=== PATIENT | female | born 1975 | race Caucasian/White ===

== ENCOUNTER 2017-05-16 18:33 | Inpatient (IN) | payer OTHER ==
[~2017-05-16] VITALS: Ht 165.1 cm; Wt 99.8 kg
[~2017-05-16 18:33] MED LIST: ADV250/50 PO; AMITRIPTYLINE25 MG PO; ASPIRIN ADULT L81 M1 PO; BUPROPION XL300 MG PO; CHLORPROMAZINE PO; FENOFIBRATE134 M1 PO; FLUOXETINE HYDR40 MG PO; FOL1 PO; GLIMEPIRIDE2 MG PO; KLONOPIN2 M1 PO; METFORMIN ER500 MG PO; METOCLOPRAMIDE10 PO; METOPROLOL50 MG PO; MSC100 PO; OMEPRAZOLE D/R20 MG PO; ONDANSETRON ODT8 MG PO; PIMOZIDE PO; SIMVASTATIN80 MG PO; VENTOLIN H0.09 MG/Ac; ZES5 PO
[2017-05-16 21:10] LABS: RED CELL DISTRIBUTION WIDTH 14.5 % (11.5-14.5)
[2017-05-16 21:13] LABS: PLATELET COUNT 424 x10^3mcL (130-400)
[2017-05-16 21:23] LABS: CALCIUM 8.9 mg/dL (8.5-10.1); CARBON DIOXIDE 26.8 mmol/L (21-32); CREATININE SERUM 1.2 mg/dL (0.6-1.0); POTASSIUM SERUM 3.4 mmol/L (3.5-5.1)
[2017-05-16 21:27] LABS: BILIRUBIN TOTAL 0.3 mg/dL (0.20-1.00); TOTAL PROTEIN, SERUM 7.7 g/dL (6.4-8.2)
[2017-05-16 21:31] LABS: ALBUMIN 3.3 g/dL (3.4-5.0)
[2017-05-16 21:57] LABS: BAND NEUTROPHIL 0 % (0-10); BASOPHIL 0 % (0-2); MONOCYTE 4 % (0-7); SEGMENTED NEUTROPHILS 91 % (37-75); rbc morphology (normal/abnorm) ABNORMAL (NORMAL)
[2017-05-16] MEDS ORDERED: DUTOPROL PO (23:07)
[2017-05-16] MEDS ORDERED: MORPHINE SULFAT30 M2 PO (23:08)
[2017-05-16] MEDS ORDERED: ORAP2 MG PO (23:09)
[2017-05-16] MEDS ORDERED: SIMPONI50 MG/0.1 (23:09)
[2017-05-16] MEDS ORDERED: ATORVASTATIN CA20 M1 PO (23:10)
[2017-05-16] MEDS ORDERED: BUPROPION HYDR300 MG PO (23:10)
[2017-05-16] MEDS ORDERED: CYCLOBENZAPRINE10 MG PO (23:10)
[2017-05-16] MEDS ORDERED: FENOFIBRATE MI134 MG PO (23:11)
[2017-05-16] MEDS ORDERED: DIFLUCAN200 MG PO (23:11)
[2017-05-16] MEDS ORDERED: INVOKANA300 MG (23:12)
[2017-05-16] MEDS ORDERED: LEVOTHYROXIN0.025 M2 PO (23:12)
[2017-05-16] MEDS ORDERED: INVOKANA300 MG PO (23:12)
[2017-05-16] MEDS ORDERED: METFORMIN850 M1 PO (23:13)
[2017-05-16] MEDS ORDERED: ZESTRIL5 MG PO (23:13)
[2017-05-16] MEDS ORDERED: MELOXICAM15 M1 PO (23:13)
[2017-05-16 23:40] VITALS: BP 153/81
[2017-05-17 00:44] LABS: MAGNESIUM 1.8 mg/dL (1.8-2.4); PHOSPHOROUS 3.2 mg/dL (2.5-4.9)
[2017-05-17 00:46] LABS: T3 TOTAL 0.66 ng/mL
[2017-05-17 00:47] LABS: CHOLESTEROL/HDL RATIO 2.7
[2017-05-17 00:54] LABS: FREE T4 0.93 ng/dL (0.76-1.46); FREE THYROXINE INDEX 2.9 ug/dL (1.4-4.5); T4(THYROXINE) 7.4 ug/dL (4.7-13.3)
[2017-05-17 05:22] VITALS: BP 144/70
[2017-05-17 07:09] LABS: microscopic required? YES; urine erythrocyte TRACE (NEGATIVE)
[2017-05-17 07:19] LABS: AMPHETAMINE QUAL UR NONE DETECTED (NEG <=1000)
[2017-05-17 08:55] VITALS: BP 144/70
[2017-05-17 09:00] VITALS: BP 123/60
[2017-05-17 16:25] VITALS: BP 152/81
[2017-05-17 16:56] VITALS: BP 152/81
[2017-05-17 20:42] VITALS: BP 156/87
[2017-05-17 22:34] LABS: PLATELET COUNT 388 x10^3mcL (130-400); RED CELL DISTRIBUTION WIDTH 14.3 % (11.5-14.5)
[2017-05-17 22:59] LABS: BAND NEUTROPHIL 4 % (0-10); METAMYELOCTE 7 % (0-2); MONOCYTE 3 % (0-7); SEGMENTED NEUTROPHILS 78 % (37-75)
[2017-05-17 23:02] LABS: rbc morphology (normal/abnorm) NORMAL (NORMAL)
[2017-05-17 23:49] VITALS: Ht 165.1 cm; Wt 99.8 kg
[2017-05-18 05:18] VITALS: BP 149/93
[2017-05-18 06:12] LABS: PLATELET COUNT 366 x10^3mcL (130-400)
[2017-05-18 06:39] LABS: CARBON DIOXIDE 24.3 mmol/L (21-32); CHLORIDE SERUM 100 mmol/L (98-107); GFR1 > 60 mL/min; GLUCOSE SERUM 233 mg/dL (74-106); MAGNESIUM 1.8 mg/dL (1.8-2.4); PHOSPHOROUS 1.6 mg/dL (2.5-4.9); SODIUM SERUM 134 mmol/L (136-145)
[2017-05-18 06:58] LABS: POTASSIUM SERUM 2.9 mmol/L (3.5-5.1)
[2017-05-18 08:50] VITALS: BP 133/61
[2017-05-18 09:57] LABS: BAND NEUTROPHIL 5 % (0-10); BASOPHIL 0 % (0-2); METAMYELOCTE 2 % (0-2); MONOCYTE 8 % (0-7); SEGMENTED NEUTROPHILS 77 % (37-75)
[2017-05-18 10:00] LABS: rbc morphology (normal/abnorm) ABNORMAL (NORMAL)
[2017-05-18 13:40] VITALS: BP 141/77
[2017-05-18 17:50] VITALS: BP 144/84
[2017-05-18 19:11] LABS: BASOPHIL % 0.1 % (0-2); PLATELET COUNT 296 x10^3mcL (130-400); RED CELL DISTRIBUTION WIDTH 14.3 % (11.5-14.5)
[2017-05-18 22:30] VITALS: BP 141/79
[2017-05-18 23:37] LABS: TOTAL IRON BINDING CAPACITY 249 ug/dL (250-450)
[2017-05-18 23:38] LABS: IRON 16 ug/dL (50-170)
[2017-05-18 23:41] LABS: RED BLOOD CELLS 2.74 M/mm3 (4.10-5.10)
[2017-05-19 06:16] VITALS: BP 150/73
[2017-05-19 06:48] LABS: BASOPHIL % 0.3 % (0-2); PLATELET COUNT 298 x10^3mcL (130-400); RED CELL DISTRIBUTION WIDTH 13.9 % (11.5-14.5)
[2017-05-19 06:58] LABS: CALCIUM 7.9 mg/dL (8.5-10.1); CARBON DIOXIDE 24.8 mmol/L (21-32); CHLORIDE SERUM 105 mmol/L (98-107); CREATININE SERUM 0.8 mg/dL (0.6-1.0); GFR1 > 60 mL/min; GLUCOSE SERUM 144 mg/dL (74-106); PHOSPHOROUS 1.2 mg/dL (2.5-4.9); POTASSIUM SERUM 3.4 mmol/L (3.5-5.1); SODIUM SERUM 140 mmol/L (136-145)
[2017-05-19 07:50] VITALS: BP 144/82
[2017-05-19 12:56] VITALS: BP 137/80
[2017-05-19 13:21] LABS: BASOPHIL % 0.2 % (0-2); PLATELET COUNT 302 x10^3mcL (130-400); RED CELL DISTRIBUTION WIDTH 13.5 % (11.5-14.5)
[2017-05-19] MEDS ORDERED: PIMOZIDE2 MG PO (13:48)
[2017-05-19 17:29] VITALS: BP 143/79
[2017-05-19 20:40] VITALS: BP 141/74
[2017-05-20 05:47] VITALS: BP 133/61
[2017-05-20 07:11] LABS: BASOPHIL % 0.4 % (0-2); PLATELET COUNT 318 x10^3mcL (130-400); RED CELL DISTRIBUTION WIDTH 14.2 % (11.5-14.5)
[2017-05-20 07:15] LABS: CALCIUM 8.3 mg/dL (8.5-10.1); CARBON DIOXIDE 25.8 mmol/L (21-32); CHLORIDE SERUM 107 mmol/L (98-107); CREATININE SERUM 0.9 mg/dL (0.6-1.0); GFR1 > 60 mL/min; GLUCOSE SERUM 167 mg/dL (74-106); PHOSPHOROUS 1.7 mg/dL (2.5-4.9); POTASSIUM SERUM 3.4 mmol/L (3.5-5.1); SODIUM SERUM 140 mmol/L (136-145)
[2017-05-20 10:29] VITALS: BP 137/85
[2017-05-20 17:58] VITALS: BP 135/71
[2017-05-20 22:03] VITALS: BP 153/81
[2017-05-21 06:07] VITALS: BP 140/79
[2017-05-21 06:56] LABS: BASOPHIL % 0.1 % (0-2); PLATELET COUNT 365 x10^3mcL (130-400); RED CELL DISTRIBUTION WIDTH 14.4 % (11.5-14.5)
[2017-05-21 07:02] LABS: CALCIUM 8.4 mg/dL (8.5-10.1); CARBON DIOXIDE 23.3 mmol/L (21-32); CHLORIDE SERUM 104 mmol/L (98-107); GFR1 > 60 mL/min; GLUCOSE SERUM 175 mg/dL (74-106); MAGNESIUM 1.5 mg/dL (1.8-2.4); PHOSPHOROUS 2.3 mg/dL (2.5-4.9); POTASSIUM SERUM 3.4 mmol/L (3.5-5.1); SODIUM SERUM 138 mmol/L (136-145)
[2017-05-21] MEDS ORDERED: COL100 PO (12:04)
[2017-05-21] MEDS ORDERED: FER300 PO (12:40)
[2017-05-21] MEDS ORDERED: FENOFIBRATE MI134 MG PO (14:11)
[2017-05-21] MEDS ORDERED: PRI20 PO (14:13)
[2017-05-21] MEDS ORDERED: KLONOPIN2 MG PO (14:14)
[2017-05-21] MEDS ORDERED: FLUOXETINE HYDR20 M2 PO (14:19)
== END 2017-05-21 16:40 | disposition home or self-care (01) | DRG 417 ==
LOC: ED 18:33 → DU 22:45 → MU 22:45 → DU 23:40 → MU 05-19 19:04
PROVIDERS: Emergency Medicine; Student in an Organized Health Care Education/Training Program; Surgery; ADMIT Family Medicine
PROC: 0FT44ZZ Resection of Gallbladder, Percutaneous Endoscopic Approach (ICD-10-PCS; principal; 2017-05-17 12:30)
PROC: 0W3P4ZZ Control Bleeding in Gastrointestinal Tract, Percutaneous Endoscopic Approach (ICD-10-PCS; 2017-05-18)
DX: K80.00 Calculus of gallbladder with acute cholecystitis without obstruction (principal); E43 Unspecified severe protein-calorie malnutrition; D62 Acute posthemorrhagic anemia; K82.1 Hydrops of gallbladder; K91.840 Postprocedural hemorrhage of a digestive system organ or structure following a digestive system procedure; E86.0 Dehydration; E87.6 Hypokalemia; K75.81 Nonalcoholic steatohepatitis (NASH); K21.9 Gastro-esophageal reflux disease without esophagitis; E11.65 Type 2 diabetes mellitus with hyperglycemia; I10 Essential (primary) hypertension; E78.5 Hyperlipidemia, unspecified; M06.9 Rheumatoid arthritis, unspecified; J45.909 Unspecified asthma, uncomplicated; L40.9 Psoriasis, unspecified; E03.9 Hypothyroidism, unspecified; F95.2 Tourette's disorder; F41.9 Anxiety disorder, unspecified; F32.9 Major depressive disorder, single episode, unspecified; E66.9 Obesity, unspecified; Z68.36 Body mass index [BMI] 36.0-36.9, adult; Z87.891 Personal history of nicotine dependence; Z79.84 Long term (current) use of oral hypoglycemic drugs; Z79.82 Long term (current) use of aspirin; Y83.6 Removal of other organ (partial) (total) as the cause of abnormal reaction of the patient, or of later complication, without mention of misadventure at the time of the procedure; Y92.234 Operating room of hospital as the place of occurrence of the external cause
CPT/HCPCS: 82962; 83880; 84439; 94150; J0330; J0690; J1170; J1200; J1885; J2270; J2405; J2543; J2704; J2710; J2916; J3010; J3480; J3490; J7030; J7613; P9059; Q0092

== ENCOUNTER 2017-07-06 15:20 | Emergency (ER) | payer OTHER ==
[~2017-07-06] VITALS: Ht 165.1 cm; Wt 94.3 kg
[~2017-07-06 15:20] MED LIST changes: +ATORVASTATIN CA20 M1 PO; +BUPROPION HYDR300 MG PO; +COL100 PO; +CYCLOBENZAPRINE10 MG PO; +DIFLUCAN200 MG PO; +DUTOPROL PO; +FENOFIBRATE MI134 MG PO; +FER300 PO; +FLUOXETINE HYDR20 M2 PO; +INVOKANA300 MG; +INVOKANA300 MG PO; +KLONOPIN2 MG PO; +LEVOTHYROXIN0.025 M2 PO; +MELOXICAM15 M1 PO; +METFORMIN850 M1 PO; +MORPHINE SULFAT30 M2 PO; +ORAP2 MG PO; +PIMOZIDE2 MG PO; +PRI20 PO; +SIMPONI50 MG/0.1; +ZESTRIL5 MG PO
[2017-07-06 17:25] VITALS: BP 122/73
== END 2017-07-06 17:31 | disposition home or self-care (01) ==
LOC: ED 15:20
DX: T81.31XA Disruption of external operation (surgical) wound, not elsewhere classified, initial encounter (principal); J45.909 Unspecified asthma, uncomplicated; I10 Essential (primary) hypertension; E11.9 Type 2 diabetes mellitus without complications; E07.9 Disorder of thyroid, unspecified; Z79.899 Other long term (current) drug therapy; Z88.8 Allergy status to other drugs, medicaments and biological substances
CPT/HCPCS: J2001